=== PATIENT | female | born 1940 | race Native Hawaiian/Other Pacific Islander ===

== ENCOUNTER 2016-05-11 13:25 | Outpatient (CLI) | payer OTHER ==
[~2016-05-11] VITALS: Ht 157.5 cm; Wt 105.2 kg
[~2016-05-11 13:25] MED LIST: ASA LOW STR81 MG PO; B12-ACTIVE1 MG PO; CALC ACETATE668 MG OR; CLONAZEP ODT2 MG PO; FLUT0.05 NAS; HECTOROL PO; NEXIUM40 M1 PO; RIBOFLAVIN100 MG OR; SENOKOT8.6 MG PO; SERT100T PO; TRAM50TA PO; VERA240T17 PO; VIT B-COMPLX100 MG IJ; VIT D GUMMIE400 UNIT OR; [UNRECOGNIZED DRUG - CODE] SC
[2016-05-11 13:40] VITALS: BP 136/68; TEMP 97.5
[2016-05-11 16:05] LABS: PLATELET COUNT 161 K/uL (152-353)
[2016-05-11 16:42] LABS: POTASSIUM 3.4 mmol/L (3.6-5.2)
== END 2016-05-11 20:30 | disposition home or self-care (01) ==
LOC: INF 13:25
PROVIDERS: Emergency Medicine
DX: I12.0 Hypertensive chronic kidney disease with stage 5 chronic kidney disease or end stage renal disease (principal); N18.5 Chronic kidney disease, stage 5; D63.1 Anemia in chronic kidney disease; N20.0 Calculus of kidney; I87.2 Venous insufficiency (chronic) (peripheral)
CPT/HCPCS: 36591; 80053; 81000; 82565; 82570; 82728; 83540; 83550; 83735; 84100; 84155; 85027; 85044; 96374; J1642

== ENCOUNTER 2016-06-10 13:04 | Outpatient (CLI) | payer OTHER ==
[~2016-06-10] VITALS: Ht 162.6 cm; Wt 110.7 kg
[2016-06-10 13:30] VITALS: BP 140/57; TEMP 98.5
[2016-06-10 14:33] LABS: PLATELET COUNT 150 K/uL (152-353)
[2016-06-10 14:42] LABS: POTASSIUM 3.6 mmol/L (3.6-5.2)
== END 2016-06-10 19:09 | disposition home or self-care (01) ==
LOC: INF 13:04
PROVIDERS: Internal Medicine Nephrology
DX: I12.0 Hypertensive chronic kidney disease with stage 5 chronic kidney disease or end stage renal disease (principal); N18.5 Chronic kidney disease, stage 5; D63.1 Anemia in chronic kidney disease; D50.8 Other iron deficiency anemias; E87.4 Mixed disorder of acid-base balance; N25.81 Secondary hyperparathyroidism of renal origin; E83.42 Hypomagnesemia; E55.9 Vitamin D deficiency, unspecified
CPT/HCPCS: 36591; 80053; 81000; 82306; 82570; 83735; 83970; 84100; 84155; 85027; 96374; J1642

== ENCOUNTER 2016-07-12 13:17 | Outpatient (CLI) | payer OTHER ==
[2016-07-12 15:57] LABS: POTASSIUM 4.1 mmol/L (3.6-5.2)
[2016-07-12 16:00] LABS: PLATELET COUNT 161 K/uL (152-353)
== END 2016-07-12 19:16 | disposition home or self-care (01) ==
LOC: INF 13:17 → RAD 13:17 → INF 19:16
PROVIDERS: Emergency Medicine
DX: I12.0 Hypertensive chronic kidney disease with stage 5 chronic kidney disease or end stage renal disease (principal); N18.5 Chronic kidney disease, stage 5; D50.8 Other iron deficiency anemias; E87.6 Hypokalemia; E83.42 Hypomagnesemia; N25.81 Secondary hyperparathyroidism of renal origin; N20.0 Calculus of kidney; Z78.0 Asymptomatic menopausal state
CPT/HCPCS: 36591; 80053; 80061; 81000; 82306; 82570; 82728; 83550; 83735; 84100; 84155; 85027; 85044; 96374; J1642

== ENCOUNTER 2016-08-02 13:12 | Outpatient (CLI) | payer OTHER ==
[2016-08-02 13:46] LABS: POTASSIUM 4.5 mmol/L (3.6-5.2)
[2016-08-02 13:47] LABS: PLATELET COUNT 174 K/uL (152-353)
== END 2016-08-02 20:02 | disposition home or self-care (01) ==
LOC: LABW 13:12
PROVIDERS: Specialist
DX: R07.2 Precordial pain (principal); Z01.810 Encounter for preprocedural cardiovascular examination
CPT/HCPCS: 36415; 80053; 85027

== ENCOUNTER 2016-08-11 12:37 | Outpatient (CLI) | payer OTHER ==
[2016-08-11 13:53] LABS: PLATELET COUNT 165 K/uL (152-353)
[2016-08-11 14:27] LABS: POTASSIUM 4.7 mmol/L (3.6-5.2)
== END 2016-08-11 13:40 | disposition home or self-care (01) ==
LOC: INF 12:37
PROVIDERS: Internal Medicine Nephrology
DX: I12.9 Hypertensive chronic kidney disease with stage 1 through stage 4 chronic kidney disease, or unspecified chronic kidney disease (principal); N18.4 Chronic kidney disease, stage 4 (severe); E55.9 Vitamin D deficiency, unspecified; D63.1 Anemia in chronic kidney disease
CPT/HCPCS: 36591; 80053; 81000; 82570; 83735; 84100; 84155; 85027; 96374; J1642

== ENCOUNTER 2016-09-08 13:29 | Outpatient (CLI) | payer OTHER ==
[~2016-09-08] VITALS: Ht 157.5 cm; Wt 107.0 kg
[2016-09-08 14:20] VITALS: BP 139/51; TEMP 98.2
[2016-09-08 15:04] LABS: PLATELET COUNT 150 K/uL (152-353)
[2016-09-08 15:27] LABS: POTASSIUM 4.2 mmol/L (3.6-5.2)
== END 2016-09-08 14:00 | disposition home or self-care (01) ==
LOC: INF 13:29
PROVIDERS: Emergency Medicine
DX: I12.0 Hypertensive chronic kidney disease with stage 5 chronic kidney disease or end stage renal disease (principal); N18.5 Chronic kidney disease, stage 5; D63.1 Anemia in chronic kidney disease; D50.8 Other iron deficiency anemias; E78.4 Other hyperlipidemia; N25.81 Secondary hyperparathyroidism of renal origin
CPT/HCPCS: 36591; 80053; 81000; 82306; 82570; 82728; 83540; 83550; 83735; 83970; 84100; 84155; 85027; 85044; 96374; J1642

== ENCOUNTER 2016-10-08 12:48 | Outpatient (CLI) | payer OTHER ==
[2016-10-08 13:41] LABS: PLATELET COUNT 140 K/uL (152-353)
[2016-10-08 13:56] LABS: POTASSIUM 4.5 mmol/L (3.6-5.2)
== END 2016-10-08 13:40 | disposition home or self-care (01) ==
LOC: INF 12:48
PROVIDERS: Emergency Medicine
DX: I12.0 Hypertensive chronic kidney disease with stage 5 chronic kidney disease or end stage renal disease (principal); N18.5 Chronic kidney disease, stage 5; D63.1 Anemia in chronic kidney disease; N25.81 Secondary hyperparathyroidism of renal origin
CPT/HCPCS: 36591; 80053; 81000; 82570; 83735; 84100; 84155; 85027; 86706; 87340; 96374; J1642

== ENCOUNTER 2016-11-09 10:58 | Outpatient (CLI) | payer OTHER ==
[2016-11-09 11:55] VITALS: BP 123/44; TEMP 97.87
[2016-11-09 13:16] LABS: PLATELET COUNT 175 K/uL (152-353)
[2016-11-09 14:21] LABS: POTASSIUM 3.8 mmol/L (3.6-5.2)
== END 2016-11-09 11:55 | disposition home or self-care (01) ==
LOC: INF 10:58
PROVIDERS: Emergency Medicine
DX: I12.9 Hypertensive chronic kidney disease with stage 1 through stage 4 chronic kidney disease, or unspecified chronic kidney disease (principal); N18.4 Chronic kidney disease, stage 4 (severe); D63.1 Anemia in chronic kidney disease; R79.89 Other specified abnormal findings of blood chemistry
CPT/HCPCS: 80053; 81000; 82306; 82570; 82728; 83036; 83540; 83550; 83735; 83970; 84100; 84155; 85027; 85044; J1642

== ENCOUNTER 2016-12-17 08:35 | Outpatient (CLI) | payer OTHER ==
[2016-12-17 09:39] LABS: PLATELET COUNT 153 K/uL (152-353)
[2016-12-17 12:48] LABS: POTASSIUM 3.6 mmol/L (3.6-5.2); SODIUM 138.5 mmol/L (136-145)
[2016-12-17 12:50] LABS: LDL CHOLESTEROL 47.5 mg/dL (0-99*)
== END 2016-12-17 09:40 | disposition home or self-care (01) ==
LOC: INF 08:35
PROVIDERS: Internal Medicine
DX: I12.0 Hypertensive chronic kidney disease with stage 5 chronic kidney disease or end stage renal disease (principal); N18.5 Chronic kidney disease, stage 5; D63.1 Anemia in chronic kidney disease; D50.8 Other iron deficiency anemias; E87.6 Hypokalemia; E83.42 Hypomagnesemia; E11.22 Type 2 diabetes mellitus with diabetic chronic kidney disease
CPT/HCPCS: 36591; 80053; 80061; 81000; 82043; 82570; 83735; 84100; 84439; 84443; 85027; 96374

== ENCOUNTER 2016-12-30 13:41 | Outpatient (CLI) | payer OTHER | END 2016-12-30 14:45 | disposition home or self-care (01) | LOC: RAD 13:41 | DX: M25.511 Pain in right shoulder (principal); M25.512 Pain in left shoulder ==

== ENCOUNTER 2017-01-12 11:16 | Outpatient (CLI) | payer OTHER ==
[2017-01-12 12:15] VITALS: BP 137/43; TEMP 98.1
[2017-01-12 12:26] LABS: PLATELET COUNT 150 K/uL (152-353)
[2017-01-12 12:50] LABS: POTASSIUM 3.7 mmol/L (3.6-5.2)
== END 2017-01-12 12:15 | disposition home or self-care (01) ==
LOC: INF 11:16
PROVIDERS: Internal Medicine Nephrology
DX: N18.5 Chronic kidney disease, stage 5 (principal)
CPT/HCPCS: 36591; 80053; 82728; 83540; 83550; 83970; 84100; 85027; 96374

== ENCOUNTER 2017-02-09 12:45 | Outpatient (CLI) | payer OTHER ==
[2017-02-09 13:30] VITALS: BP 95/53; TEMP 98.5
== END 2017-02-09 13:30 | disposition home or self-care (01) ==
LOC: INF 12:45
DX: I87.2 Venous insufficiency (chronic) (peripheral) (principal)
CPT/HCPCS: 96523

== ENCOUNTER 2017-03-08 09:49 | Outpatient (CLI) | payer OTHER ==
[2017-03-08 11:30] VITALS: BP 130/48; TEMP 98.3
[2017-03-08 11:59] LABS: PLATELET COUNT 156 K/uL (152-353); POTASSIUM 3.7 mmol/L (3.6-5.2)
== END 2017-03-08 12:00 | disposition home or self-care (01) ==
LOC: INF 09:49
PROVIDERS: Emergency Medicine
DX: N18.5 Chronic kidney disease, stage 5 (principal); I25.10 Atherosclerotic heart disease of native coronary artery without angina pectoris; E78.2 Mixed hyperlipidemia; Z79.899 Other long term (current) drug therapy; Z51.81 Encounter for therapeutic drug level monitoring; I87.2 Venous insufficiency (chronic) (peripheral)
CPT/HCPCS: 36415; 80053; 80061; 82248; 82728; 83540; 83550; 83970; 84100; 85027; 96523

== ENCOUNTER 2017-04-28 10:24 | Outpatient (CLI) | payer OTHER ==
[2017-04-28 11:14] LABS: PLATELET COUNT 170 K/uL (152-353)
[2017-04-28 11:42] LABS: POTASSIUM 4.1 mmol/L (3.6-5.2)
== END 2017-04-28 13:00 | disposition home or self-care (01) ==
LOC: INF 10:24 → LABW 10:24 → INF 13:00
PROVIDERS: Internal Medicine Nephrology
DX: N18.5 Chronic kidney disease, stage 5 (principal); I87.2 Venous insufficiency (chronic) (peripheral)
CPT/HCPCS: 36591; 80053; 82728; 83540; 83550; 83970; 84100; 85027; 96374; J1642

== ENCOUNTER 2017-05-02 08:03 | Outpatient (CLI) | payer OTHER | END 2017-05-02 21:07 | disposition home or self-care (01) | LOC: CT 08:03 | DX: M53.1 Cervicobrachial syndrome (principal) ==

== ENCOUNTER 2017-05-26 09:35 | Outpatient (CLI) | payer OTHER ==
[2017-05-26 10:23] LABS: PLATELET COUNT 152 K/uL (152-353)
[2017-05-26 10:52] LABS: POTASSIUM 3.6 mmol/L (3.6-5.2)
== END 2017-05-26 23:57 | disposition home or self-care (01) ==
LOC: INF 09:35
PROVIDERS: Family Medicine
DX: N18.5 Chronic kidney disease, stage 5 (principal)
CPT/HCPCS: 36591; 80053; 82306; 83970; 84100; 85027; 96374; J1642

== ENCOUNTER 2017-06-05 17:54 | Emergency (ER) | payer OTHER ==
[~2017-06-05] VITALS: Ht 157.5 cm; Wt 102.1 kg
[2017-06-05 19:09] LABS: PLATELET COUNT 172 K/uL (152-353)
[2017-06-05 19:27] LABS: POTASSIUM 3.5 mmol/L (3.6-5.2)
[2017-06-05 21:35] VITALS: BP 147/59; TEMP 98
== END 2017-06-05 21:38 | disposition home or self-care (01) ==
LOC: ED 17:54
DX: K52.89 Other specified noninfective gastroenteritis and colitis (principal)
CPT/HCPCS: 36415; 74022; 80053; 81000; 85027; 99283

== ENCOUNTER 2017-06-07 17:36 | Emergency (ER) | payer OTHER ==
[~2017-06-07] VITALS: Ht 157.5 cm; Wt 102.1 kg
[2017-06-07 18:40] LABS: PLATELET COUNT 174 K/uL (152-353)
[2017-06-07 19:00] LABS: POTASSIUM 3.2 mmol/L (3.6-5.2)
[2017-06-07 21:35] VITALS: BP 147/61; TEMP 97.9
== END 2017-06-07 21:35 | disposition home or self-care (01) ==
LOC: ED 17:36
DX: N18.9 Chronic kidney disease, unspecified (principal); N20.0 Calculus of kidney; R91.1 Solitary pulmonary nodule; E87.6 Hypokalemia
CPT/HCPCS: 36415; 80053; 85027; 96374; 99284; J1642

== ENCOUNTER 2017-07-21 13:53 | Outpatient (CLI) | payer OTHER | END 2017-07-21 22:06 | disposition home or self-care (01) | LOC: LAB 13:53 | DX: E11.9 Type 2 diabetes mellitus without complications (principal) | CPT/HCPCS: 83036 ==

== ENCOUNTER 2017-07-28 13:29 | Outpatient (CLI) | payer OTHER ==
[2017-07-28 13:35] VITALS: BP 123/44; TEMP 98.2
== END 2017-07-28 19:40 | disposition home or self-care (01) ==
LOC: INF 13:29
DX: Z95.828 Presence of other vascular implants and grafts (principal)
CPT/HCPCS: 96523

== ENCOUNTER 2017-09-01 13:31 | Outpatient (CLI) | payer OTHER ==
[2017-09-01 13:30] VITALS: BP 149/63; TEMP 98.5
== END 2017-09-01 20:57 | disposition home or self-care (01) ==
LOC: INF 13:31
DX: Z95.828 Presence of other vascular implants and grafts (principal)
CPT/HCPCS: 96523

== ENCOUNTER 2017-09-15 14:15 | Outpatient (CLI) | payer OTHER | END 2017-09-15 20:13 | disposition home or self-care (01) | LOC: RAD 14:15 | DX: M85.89 Other specified disorders of bone density and structure, multiple sites (principal) ==

== ENCOUNTER 2017-10-06 13:19 | Outpatient (CLI) | payer OTHER | END 2017-10-06 19:41 | disposition home or self-care (01) | LOC: INF 13:19 | DX: Z95.828 Presence of other vascular implants and grafts (principal) | CPT/HCPCS: 96523 ==

== ENCOUNTER 2017-11-11 13:13 | Outpatient (CLI) | payer OTHER ==
[2017-11-11 13:25] VITALS: BP 139/46; TEMP 98.4
== END 2017-11-11 19:55 | disposition home or self-care (01) ==
LOC: INF 13:13
DX: Z95.828 Presence of other vascular implants and grafts (principal)
CPT/HCPCS: 96523

== ENCOUNTER 2017-12-14 12:59 | Outpatient (CLI) | payer OTHER | END 2017-12-14 21:43 | disposition home or self-care (01) | LOC: INF 12:59 | DX: Z95.828 Presence of other vascular implants and grafts (principal) | CPT/HCPCS: 96374; J1642 ==

== ENCOUNTER 2018-01-18 12:15 | Outpatient (CLI) | payer OTHER ==
[2018-01-18 13:06] VITALS: BP 126/42; TEMP 97.7
== END 2018-01-18 19:23 | disposition home or self-care (01) ==
LOC: INF 12:15 → RAD 12:15 → INF 19:23
DX: M79.605 Pain in left leg (principal); Z95.828 Presence of other vascular implants and grafts
CPT/HCPCS: 96523

== ENCOUNTER 2018-02-20 08:28 | Outpatient (CLI) | payer OTHER | END 2018-02-20 19:40 | disposition home or self-care (01) | LOC: INF 08:28 | DX: Z95.828 Presence of other vascular implants and grafts (principal) | CPT/HCPCS: 96374; J1642 ==

== ENCOUNTER 2018-04-22 12:16 | Emergency (ER) | payer OTHER ==
[~2018-04-22] VITALS: Ht 157.5 cm; Wt 99.8 kg
[2018-04-22 13:55] VITALS: BP 120/50; TEMP 98.1
== END 2018-04-22 13:55 | disposition home or self-care (01) ==
LOC: ED 12:16
DX: M25.551 Pain in right hip (principal); M25.561 Pain in right knee
CPT/HCPCS: 99283

== ENCOUNTER 2018-05-08 11:37 | Outpatient (CLI) | payer OTHER | END 2018-05-08 20:56 | disposition home or self-care (01) | LOC: CT 11:37 | DX: M87.059 Idiopathic aseptic necrosis of unspecified femur (principal) ==

== ENCOUNTER 2018-05-11 14:49 | Outpatient (CLI) | payer OTHER | END 2018-05-11 22:40 | disposition home or self-care (01) | LOC: LAB 14:49 | DX: D64.9 Anemia, unspecified (principal) | CPT/HCPCS: 85014; 85018 ==

== ENCOUNTER 2018-05-19 11:41 | Outpatient (CLI) | payer OTHER ==
[2018-05-19 13:00] LABS: POTASSIUM 3.8 mmol/L (3.6-5.2)
== END 2018-05-19 19:45 | disposition home or self-care (01) ==
LOC: LABW 11:41
PROVIDERS: Physician Assistant
DX: E11.9 Type 2 diabetes mellitus without complications (principal); E03.9 Hypothyroidism, unspecified; I10 Essential (primary) hypertension; E55.9 Vitamin D deficiency, unspecified
CPT/HCPCS: 36415; 80053; 82306; 83036; 84439; 84443

== ENCOUNTER 2018-09-22 10:35 | Outpatient (CLI) | payer OTHER ==
[2018-09-22 10:42] VITALS: BP 129/50; TEMP 98
== END 2018-09-22 23:32 | disposition home or self-care (01) ==
LOC: INF 10:35
DX: Z95.828 Presence of other vascular implants and grafts (principal)
CPT/HCPCS: 96523

== ENCOUNTER 2018-11-15 10:42 | Outpatient (CLI) | payer OTHER | END 2018-11-15 19:32 | disposition home or self-care (01) | LOC: RESP 10:42 | DX: I25.10 Atherosclerotic heart disease of native coronary artery without angina pectoris (principal); R01.1 Cardiac murmur, unspecified; I10 Essential (primary) hypertension; R00.2 Palpitations | CPT/HCPCS: 93225; 93306 ==

== ENCOUNTER 2019-01-26 08:52 | Outpatient (CLI) | payer OTHER | END 2019-01-26 11:15 | disposition home or self-care (01) | LOC: INF 08:52 → LABW 08:52 → INF 11:15 | DX: M10.9 Gout, unspecified (principal) | CPT/HCPCS: 36415; 84550; 96523 ==

== ENCOUNTER 2019-10-03 14:18 | Outpatient (CLI) | payer OTHER | END 2019-10-03 22:10 | disposition home or self-care (01) | LOC: CT 14:18 | DX: M79.605 Pain in left leg (principal); R10.31 Right lower quadrant pain; R10.32 Left lower quadrant pain ==

== ENCOUNTER 2020-04-23 12:34 | Outpatient (CLI) | payer OTHER | END 2020-04-23 23:59 | disposition home or self-care (01) | LOC: MRI 12:34 | PROVIDERS: ATTEND Internal Medicine Nephrology | DX: M54.2 Cervicalgia (principal) ==

== ENCOUNTER 2020-07-25 16:04 | Emergency (ER) | payer OTHER ==
[~2020-07-25] VITALS: Ht 157.5 cm; Wt 98.0 kg
[2020-07-25 16:54] LABS: PLATELET COUNT 275 K/uL (152-353)
[2020-07-25 17:43] LABS: SODIUM 134 mmol/L (136-145)
[2020-07-25 21:49] VITALS: BP 162/54; TEMP 98
== END 2020-07-25 21:40 | disposition short-term general hospital (02) ==
LOC: ED 16:04
PROVIDERS: Emergency Medicine Emergency Medical Services
DX: R06.09 Other forms of dyspnea (principal); I50.9 Heart failure, unspecified; J44.9 Chronic obstructive pulmonary disease, unspecified; Z20.822 Contact with and (suspected) exposure to COVID-19
CPT/HCPCS: 36415; 80053; 83880; 84484; 85027; 87635; 93005; 94664; 96374; 99284; J1940; U0003

== ENCOUNTER 2020-11-25 07:37 | Outpatient (CLI) | payer OTHER | END 2020-11-25 21:41 | disposition home or self-care (01) | LOC: LAB 07:37 | PROVIDERS: ATTEND Internal Medicine | DX: U07.1 COVID-19 (principal) | CPT/HCPCS: 87635; G2023; U0003 ==

== ENCOUNTER 2021-05-12 06:26 | Emergency (ER) | payer OTHER ==
[~2021-05-12] VITALS: Ht 157.5 cm; Wt 99.3 kg
[2021-05-12 06:41] VITALS: TEMP 98.2
[2021-05-12 07:13] LABS: PLATELET COUNT 120 K/uL (152-353)
[2021-05-12 07:26] LABS: POTASSIUM 4.4 mmol/L (3.6-5.2)
[2021-05-12 07:40] VITALS: BP 164/64
== END 2021-05-12 07:43 | disposition home or self-care (01) ==
LOC: ED 06:26
PROVIDERS: Emergency Medicine
DX: K21.9 Gastro-esophageal reflux disease without esophagitis (principal); R60.9 Edema, unspecified; R79.89 Other specified abnormal findings of blood chemistry; R06.02 Shortness of breath
CPT/HCPCS: 80048; 83880; 84484; 85027; 93005; 96374; 99284; J3490

== ENCOUNTER 2021-06-12 15:02 | Outpatient (CLI) | payer OTHER | END 2021-06-12 21:50 | disposition home or self-care (01) | LOC: CT 15:02 | PROVIDERS: ATTEND Internal Medicine Nephrology | DX: M79.621 Pain in right upper arm (principal) ==

== ENCOUNTER 2021-06-30 16:13 | Outpatient (CLI) | payer OTHER | END 2021-06-30 18:59 | disposition home or self-care (01) | LOC: LAB 16:13 | PROVIDERS: ATTEND Internal Medicine | DX: I10 Essential (primary) hypertension (principal); E03.8 Other specified hypothyroidism | CPT/HCPCS: 80061; 84439; 84443; 84550 ==

== ENCOUNTER 2021-11-03 14:36 | Outpatient (CLI) | payer OTHER | END 2021-11-03 19:10 | disposition home or self-care (01) | LOC: US 14:36 | PROVIDERS: ATTEND Internal Medicine Nephrology | DX: E04.8 Other specified nontoxic goiter (principal) ==

== ENCOUNTER 2022-01-15 10:07 | Outpatient (CLI) | payer OTHER ==
[2022-01-15 10:51] LABS: PLATELET COUNT 145 K/uL (152-353)
[2022-01-15 11:08] LABS: POTASSIUM 4.9 mmol/L (3.6-5.2)
== END 2022-01-15 20:32 | disposition home or self-care (01) ==
LOC: RESP 10:07
PROVIDERS: ATTEND Internal Medicine Gastroenterology
DX: R13.19 Other dysphagia (principal); R12 Heartburn; T17.320A Food in larynx causing asphyxiation, initial encounter; Z68.39 Body mass index [BMI] 39.0-39.9, adult; N18.6 End stage renal disease; Y92.89 Other specified places as the place of occurrence of the external cause
CPT/HCPCS: 36415; 80053; 85027; 93005

== ENCOUNTER 2022-04-30 08:57 | Outpatient (CLI) | payer OTHER | END 2022-04-30 19:23 | disposition home or self-care (01) | LOC: CT 08:57 | PROVIDERS: ATTEND Internal Medicine Nephrology | DX: E04.8 Other specified nontoxic goiter (principal) | CPT/HCPCS: 36415; 82565; 84520 ==

== ENCOUNTER 2022-07-20 15:39 | Outpatient (CLI) | payer OTHER | END 2022-07-20 22:46 | disposition home or self-care (01) | LOC: RAD 15:39 | PROVIDERS: ATTEND Internal Medicine | DX: M21.861 Other specified acquired deformities of right lower leg (principal); M79.671 Pain in right foot; M25.571 Pain in right ankle and joints of right foot ==

== ENCOUNTER 2022-10-27 09:43 | Outpatient (CLI) | payer OTHER | END 2022-10-27 21:02 | disposition home or self-care (01) | LOC: RAD 09:43 | PROVIDERS: ATTEND Nurse Practitioner Family | DX: M25.562 Pain in left knee (principal) ==